=== PATIENT | male | born 1985 | race Two or more races ===

== ENCOUNTER 2019-04-01 05:59 | Emergency (ER) | payer OTHER ==
[~2019-04-01] VITALS: Ht 167.6 cm; Wt 59.0 kg
[2019-04-01] MEDS ORDERED: MAGNESIUM 2 G PREMIX 50 ML IV STA (06:15)
[2019-04-01] MEDS ORDERED: METHYLPREDNISOLONE SOD SUCC 125 MG/2 ML VIAL IV STA (06:15)
[2019-04-01] MEDS ORDERED: IPRATROPIUM BROMIDE (0.02%) 0.5MG/2.5ML NEB HHN STA (06:15)
[2019-04-01] MEDS ORDERED: ALBUTEROL (0.083%) 2.5MG/3ML NEB HHN STA (06:15)
[2019-04-01 07:26] VITALS: BP 105/57
== END 2019-04-01 09:16 | disposition home or self-care (01) ==
LOC: ER 05:59
DX: J45.901 Unspecified asthma with (acute) exacerbation (principal)
CPT/HCPCS: 71045; 93005; 94644; 96365; 96375; 99285; J2930; J3475; J7611; Z7610